=== PATIENT | male | born 1985 | race Caucasian/White ===

== ENCOUNTER 2017-07-20 08:40 | Emergency (ER) | payer OTHER ==
[~2017-07-20] VITALS: Ht 167.6 cm; Wt 77.6 kg
[~2017-07-20 08:40] MED LIST: MULT-506 PO
[2017-07-20 08:44] VITALS: BP 120/79; PULSE 69; TEMP 36.6; O2SAT 98; Ht 167.6 cm; Wt 77.6 kg
[2017-07-20] MEDS ORDERED: OXYCODONE HCL IR 5 MG TAB (IMMEDIATE RELEASE) PO STA (09:01)
[2017-07-20] MEDS ORDERED: OFLOXACIN 0.3% OP SOLN 5 ML BTL OP STA (09:02)
[2017-07-20] MEDS ORDERED: AZITHROMYCIN 250 MG TAB PO STA (09:04)
[2017-07-20] MEDS ORDERED: OXYC1TAB3 PO (09:07)
[2017-07-20] MEDS ORDERED: AZIT-60 PO (09:07)
[2017-07-20] MEDS ORDERED: OFLO0.3D4 OTL (09:07)
--- NOTE | 2017-07-20 09:09 | EMERGENCY ROOM VISIT NOTE ---
History First contact with patient: 08:53 Chief Complaint: EAR PAIN Stated Complaint: BLOOD COMING OUT OF LEFT EAR/SEVERE PAIN History of Present Illness The patient is a 31 year old male who presents to the Emergency Room with complaints of "blood coming out of left ear/severe pain". The patient states that around midnight he began with severe left-sided ear pain. He has had ear congestion for the past few days. He states that he is heard cracking and popping sounds in the ear but denies any trauma or placing any cotton swabs in the ear. Notes that then after the pain he is felt something coming out of his ear and noted there to be drainage. The female at bedside states that it has red/blood-tinged drainage. It is only one-sided. He also notes muffled hearing. He rates the overall pain as a 8/10. Review of Systems A complete 6-point Review of Systems was discussed with the patient, with pertinent positives and negatives listed in the History of Present Illness. All remaining Review of Systems questions can be considered negative unless otherwise specified. Past Medical/Surgical History Medical Problems: (1) ACUTE PERICARDITIS NOS (2) Back pain (3) BIPOLAR DISORDER, UNSPECIFIED (4) FAM HX-DIABETES MELLITUS (5) FAMILY HISTORY OF OTHER CARDIOVASCULAR DISEASES (6) TOBACCO USE DISORDER Family History Diabetes mellitus Social History Smoking Status: Former Smoker Alcohol Use: none Drug Use: none Marital Status: single Housing Status: unknown Occupation Status: employed Current/Historical Medications Scheduled Azithromycin (Zithromax), 250 MG PO DAILY Multivitamin (Multivitamin), 1 TAB PO DAILY Ofloxacin (Otic) (Floxin Otic), 3 DROPS OTL DAILY Scheduled PRN Oxycodone Ir (Roxicodone Ir), 1-2 TAB PO Q4H PRN for Pain Physical Exam Vital Signs Date Time Temp Pulse Resp B/P (MAP) Pulse Ox O2 Delivery O2 Flow Rate FiO2 07/20/17 08:44 36.6 69 18 120/79 98 Room Air Physical Exam VITAL SIGNS - Vital signs and nursing notes were reviewed. Stable. GENERAL -31-year-old male appearing his stated age who is in no acute distress. Communicates well with provider and answers questions appropriately. SKIN - Without rashes. No meningeal or petechial rash. HEAD - NC/AT. EYES - PERRL with EOMI bilaterally. Sclera anicteric. EARS - No deformities of external structures noted on gross examination bilaterally. The right ear is unremarkable. The left external ear does reveal some dried blood in the dependent portion of the external ear canal. The ear canals otherwise unremarkable. The TM does reveal a small perforation with multiple air-fluid levels/bubbles behind the TM. No evidence of hemotympanum. No evidence of ossicular damage. NOSE - Midline and without cyanosis. No epistaxis or purulent drainage noted. Septum midline without deviation or septal hematoma noted. MOUTH/OROPHARYNX - Without perioral cyanosis. Buccal mucosa pink and moist and without leukoplakia. Tongue midline with equal elevation of palate bilaterally. No tonsillar hypertrophy, erythema, or exudates noted. Fair dentition noted. NECK - Neck with FROM. Supple to palpation. No lymphadenopathy noted. No nuchal rigidity. Medical Decision & Procedures Medications Administered Medications (Trade) Dose Ordered Sig/Radha Route Start Time Stop Time Status Last Admin Dose Admin Oxycodone HCl (Roxicodone Immediate Rel Tab) 5 mg NOW STAT PO 07/20/17 09:01 07/20/17 09:02 DC 07/20/17 09:12 5 MG Ofloxacin (Ocuflox 0.3% Oph Soln) 1 drops NOW STAT OP 07/20/17 09:02 07/20/17 09:03 DC 07/20/17 09:12 1 DROPS Azithromycin (Zithromax Tab) 500 mg NOW STAT PO 07/20/17 09:04 07/20/17 09:05 DC 07/20/17 09:13 500 MG Medical Decision Patient was seen and evaluated as above in room B11. He presents to us today with left-sided ear pain. Review was performed of nursing notes and vital signs. After obtaining a thorough history and physical examination it was evident he was likely experiencing serous otitis media and the pressure was not able to equalize likely secondary to eustachian tube dysfunction causing a left TM perforation. No evidence of otitis media. He will be placed upon ofloxacin eardrops in the event that the could be a small underlying infection. He also be placed upon p.o. antibiotics in the event of the could be a subclinical otitis media present. Penicillins were avoided secondary to allergy. He will be given a short course of pain medication. Again no evidence of trauma or ossicular damage or disruption. He is to follow with his family doctor or ear nose and throat if this persists or return with worsening. no red flags in the [place] drug monitoring system. The patient was educated upon management, had questions answered prior to discharge, and was discharged home in good condition. In the evaluation and treatment of this patient the following differential diagnoses were entertained: Otitis media, otitis externa, ossicular trauma, barotrauma, TM perforation, eustachian tube dysfunction, among others. Impression Primary Impression: Otitis media, serous, TM rupture Departure Information Dispostion Home / Self-Care Condition GOOD Prescriptions Oxycodone Ir (Roxicodone Ir) 5 Mg Tab 1-2 TAB PO Q4H Y for Pain, #18 TAB For Initial Treatment Prov: Duke Oconnor PA-C 07/20/17 Ofloxacin (Otic) (FLOXIN OTIC) 0.3 % Ad[place] 3 DROPS OTL DAILY, #1 BTL Prov: Duke Oconnor PA-C 07/20/17 Azithromycin (ZITHROMAX) 250 Mg Tab 250 MG PO DAILY, #4 TAB Prov: Duke Oconnor PA-C 07/20/17 Referrals No Doctor, Assigned (PCP) Aiden Hirsch MD Patient Instructions My [facility] Additional Instructions You have been treated in the Emergency Department for an Inner Ear irritation with tympanic membrane perforation. You have received pain medicine in the emergency department which impairs your ability to operate a vehicle. It is illegal for you to drive after receiving these medicines. You were prescribed azithromycin to be taken once daily, your first dose was given here with next dose tomorrow around 9 AM. This is an antibiotic. All antibiotics have the potential to cause diarrhea. Stop this medication and contact a medical provider if you were to develop any significant adverse side effects including: wheezing, shortness of breath, passing out, vomiting, or a diffuse rash. Always take antibiotics as directed and COMPLETE the ENTIRE course regardless of the improvement of your symptoms. Ofloxacin eardrops 2-3 drops in your left ear daily until the membrane is healed. This is ideally for about 10 days but please have your family doctor verify this. If you run out of the drops that we gave you I sent some more to your pharmacy if you need them. For pain and fever control, you can use the following [id number] medicines (if >12 yo): - Regular strength (200 mg/tab) Advil (ibuprofen) 1-2 tabs every 4-6 hours as needed. Do not exceed a dose of 3200 mg per day. You should follow-up with your Primary Care Provider from today's Emergency Department visit. If need be, I have also listed the number for the ear nose and throat doctor which he may also follow with. Return to the emergency department if you develop the following symptoms despite treatment course outlined above: headache, fever, intractable pain, increased redness, swelling, or purulent discharge.
== END 2017-07-20 09:27 | disposition home or self-care (01) ==
LOC: C.EDB 08:42
DX: H65.92 Unspecified nonsuppurative otitis media, left ear (principal); H72.92 Unspecified perforation of tympanic membrane, left ear; Z87.891 Personal history of nicotine dependence